=== PATIENT | male | born 1970 | race Caucasian/White ===

== ENCOUNTER 2019-02-19 07:44 | Observation (INO) ==
[2019-02-19 08:05] LABS: Basophils # 0.1 K/mcL (0.0-0.2); Basophils % 1.1 %; Eosinophils # 0.2 K/mcL (0.0-0.6); Eosinophils % 2.6 %; Hematocrit 41.6 % (37.5-50.1); Hemoglobin 14.5 g/dL (12.9-16.9); Immature Granulocytes % 0.2 % (0-4); Lymphocytes # 1.7 K/mcL (0.6-4.6); Lymphocytes % 19.8 %; Mean Corpuscular HGB Conc 34.9 g/dL (31.6-35.5); Mean Corpuscular Hemoglobin 31.5 pg (28.0-33.3); Mean Corpuscular Volume 90.4 fL (83.0-100.0); Mean Platelet Volume 10.2 fL (9.4-12.4); Monocytes # 0.6 K/mcL (0.0-1.3); Monocytes % 6.8 %; Neutrophils # 5.8 K/mcL (1.6-8.9); Platelet Count 261 K/mcL (140-400); Red Cell Distribution Width 12.8 % (11.5-14.5); Segmented Neutrophils % 69.5 %; White Blood Count 8.4 K/mcL (4.3-11.1)
[2019-02-19] MEDS ORDERED: *HR* Labetalol 20 MG/4 ML SYRINGE IVP ONE ×2 (08:09→09:23)
[2019-02-19] MEDS ORDERED: Lisinopril 20 MG TABLET PO ONE (08:10)
[2019-02-19] MEDS ORDERED: hydroCHLOROthiazide 25 MG TABLET PO ONE (08:10)
[2019-02-19 08:12] LABS: INR 0.9; Prothrombin Time 10.3 Seconds (9.4-12.1)
[2019-02-19 08:15] LABS: Activated Partial Thrombo Time 30.3 Seconds (26.0-36.0)
[2019-02-19 08:20] LABS: Alanine Aminotransferase 35 Units/L (7-52); Albumin 4.2 g/dL (3.5-5.7); Albumin/Globulin Ratio 1.6 (1.1-2.2); Alkaline Phosphatase 58 Units/L (34-104); Aspartate Amino Transferase 39 Units/L (13-39); BUN/Creatinine Ratio 18 (6-26); Bilirubin,Total 0.3 mg/dL (0.3-1.0); Blood Urea Nitrogen 27 mg/dL (6-20); Calcium 9.5 mg/dL (8.6-10.3); Carbon Dioxide 30 mEq/L (23-29); Chloride 103 mEq/L (98-107); Globulin 2.7 g/dL (2.4-3.5); Glucose 95 mg/dL (70-105); Osmolality,Calculated 295 (280-300); Potassium 3.7 mEq/L (3.5-5.1); Sodium 140 mEq/L (136-145); Total Protein 6.9 g/dL (6.4-8.9); eGFR For African Americans > 60 (> 60); eGFR For Non-African Americans 51 (> 60)
[2019-02-19 08:24] LABS: Troponin I < 0.03 ng/mL (< 0.04)
[2019-02-19] MEDS ORDERED: Ibuprofen 600 MG TABLET PO ONE (09:21)
[2019-02-19] MEDS ORDERED: MOM Conc 10 ML UD.LIQ PO PRN (10:05)
[2019-02-19] MEDS ORDERED: Mag Hydrox/Al Hydrox/Simeth 30 ML UDC PO PRN (10:05)
[2019-02-19] MEDS ORDERED: Naloxone 0.4 MG/ML INJ IVP PRN (10:05)
[2019-02-19] MEDS ORDERED: Ondansetron ODT 4 MG TAB.RAPDIS SL PRN (10:05)
[2019-02-19] MEDS ORDERED: *HR* HYDROcodone/Acet 5/325 mg TABLET PO PRN (10:07)
[2019-02-19] MEDS ORDERED: Nitroglycerin 0.4 MG TAB.SUBL SL PRN (10:07)
[2019-02-19] MEDS ORDERED: *HR* Labetalol 100 MG/20 ML MDV IVP PRN (10:08)
[2019-02-19] MEDS ORDERED: Nicotine 21 MG PATCH.TD24 TD SCH (10:15)
[2019-02-19] MEDS ORDERED: *HR* Labetalol 100 MG/20 ML MDV IVP ONE (12:35)
[2019-02-19] MEDS ORDERED: *HR* HYDROcodone/Acet 5/325 mg TABLET PO ONE (12:49)
[2019-02-19] MEDS ORDERED: Nicotine 2 MG GUM BC PRN (13:27)
[2019-02-19] MEDS: *HR* HYDROcodone/Acet 5/325 mg TABLET PO PRN ×2 (17:31→21:27)
[2019-02-19] MEDS: carvediloL 25 MG TABLET PO SCH (17:32)
[2019-02-19] MEDS ORDERED: 0.45 % Sodium Chloride w/KCl 20 MEQ/1,000 ML MLS IVC SCH (17:45)
[2019-02-19] MEDS: amLODIPine 5 MG TABLET PO SCH (18:39)
[2019-02-20] MEDS: *HR* HYDROcodone/Acet 5/325 mg TABLET PO PRN ×3 (01:49→10:23)
[2019-02-20 05:23] LABS: Amphetamine Screen,Urine Negative ng/mL (Cutoff=1000); Barbiturate Screen,Urine Negative ng/mL (Cutoff=200); Benzodiazepines Screen,Urine Negative ng/mL (Cutoff=200); Cannabinoid Screen,Urine Positive ng/mL (Cutoff = 50); Cocaine Screen,Urine Negative ng/mL (Cutoff= 300); Opiate Screen,Urine Positive ng/mL (Cutoff=300); Phencyclidine Screen,Urine Negative ng/mL (Cutoff=25)
[2019-02-20] MEDS: amLODIPine 5 MG TABLET PO SCH (08:22)
[2019-02-20] MEDS: carvediloL 25 MG TABLET PO SCH (08:22)
[2019-02-20] MEDS ORDERED: Lisinopril 20 MG TABLET PO SCH (09:00)
[2019-02-20] MEDS ORDERED: Aspirin 81 MG TAB.CHEW PO SCH (09:00)
[2019-02-20] MEDS ORDERED: hydroCHLOROthiazide 25 MG TABLET PO SCH (09:00)
[2019-02-20 09:25] LABS: Calcium 8.4 mg/dL (8.6-10.3); Magnesium 1.7 mg/dL (1.6-2.6); Potassium 3.4 mEq/L (3.5-5.1); Uric Acid 7.2 mg/dL (2.3-7.6)
[2019-02-20 11:14] VITALS: BP 130/89
== END 2019-02-20 12:38 | disposition home or self-care (01) ==
LOC: EMEROOPIK 07:44 → INPPIK 07:44
PROVIDERS: ADMIT Internal Medicine; ATTEND Internal Medicine

== ENCOUNTER 2020-08-17 12:18 | Observation (INO) ==
[2020-08-17] MEDS ORDERED: 0.9 % Sodium Chloride 1,000 ML IVC ONE (12:36)
[2020-08-17] MEDS ORDERED: carvediloL 25 MG TABLET PO ONE (12:42)
[2020-08-17] MEDS ORDERED: amLODIPine 5 MG TABLET PO ONE (12:42)
[2020-08-17 12:48] LABS: Basophils # 0.1 K/mcL (0.0-0.2); Basophils % 0.7 %; Eosinophils # 0.2 K/mcL (0.0-0.6); Eosinophils % 2.7 %; Hematocrit 36.3 % (37.5-50.1); Hemoglobin 12.6 g/dL (12.9-16.9); Lymphocytes # 2.6 K/mcL (0.6-4.6); Mean Corpuscular HGB Conc 34.7 g/dL (31.6-35.5); Mean Corpuscular Hemoglobin 29.8 pg (28.0-33.3); Mean Corpuscular Volume 85.8 fL (83.0-100.0); Mean Platelet Volume 10.5 fL (9.4-12.4); Monocytes # 0.5 K/mcL (0.0-1.3); Monocytes % 6.3 %; Neutrophils # 3.9 K/mcL (1.6-8.9); Platelet Count 275 K/mcL (140-400); Red Blood Count 4.23 M/mcL (4.19-5.50); Red Cell Distribution Width 12.6 % (11.5-14.5); Segmented Neutrophils % 54.3 %; White Blood Count 7.1 K/mcL (4.3-11.1)
[2020-08-17 13:03] LABS: Alanine Aminotransferase 9 Units/L (7-52); Albumin/Globulin Ratio 1.5 (1.1-2.2); Alkaline Phosphatase 57 Units/L (34-104); Aspartate Amino Transferase 11 Units/L (13-39); BUN/Creatinine Ratio 15 (6-26); Bilirubin,Direct 0.1 mg/dL (0.0-0.2); Bilirubin,Indirect 0.4 mg/dL (0.0-1.0); Bilirubin,Total 0.5 mg/dL (0.3-1.0); Blood Urea Nitrogen 19 mg/dL (6-20); Calcium 9.1 mg/dL (8.6-10.3); Carbon Dioxide 25 mEq/L (23-29); Chloride 107 mEq/L (98-107); Globulin 2.7 g/dL (2.4-3.5); Glucose 89 mg/dL (70-105); Osmolality,Calculated 294 (280-300); Potassium 3.3 mEq/L (3.5-5.1); Sodium 141 mEq/L (136-145); Total Protein 6.7 g/dL (6.4-8.9); eGFR For African Americans > 60 (> 60); eGFR For Non-African Americans > 60 (> 60)
[2020-08-17 14:23] LABS: Bilirubin,Urine Negative (Negative); Blood,Urine Negative (Negative); Clarity,Urine Clear (Clear); Color,Urine Yellow (Yellow); Glucose,Urine (UA) Normal (Normal); Ketones,Urine Negative (Negative); Leukocyte Esterase,Urine Negative (Negative); Nitrite,Urine Negative (Negative); Protein,Urine Trace mg/dL (Neg-Trace); Urobilinogen,Urine Normal (Normal)
[2020-08-17] MEDS: 0.9 % Sodium Chloride 1,000 ML IVC SCH ×2 (14:38→18:49)
[2020-08-17] MEDS ORDERED: Mag Hydrox/Al Hydrox/Simeth 30 ML UDC PO PRN (17:32)
[2020-08-17] MEDS ORDERED: Acetaminophen 325 MG TABLET PO PRN (17:32)
[2020-08-17] MEDS ORDERED: Naloxone 0.4 MG/ML INJ IVP PRN (17:32)
[2020-08-17] MEDS ORDERED: MOM Conc 10 ML UD.LIQ PO PRN (17:32)
[2020-08-17] MEDS ORDERED: Ondansetron 4 MG/2 ML VIAL IVP PRN (17:32)
[2020-08-17] MEDS ORDERED: Melatonin 3 MG TABLET PO PRN (17:32)
[2020-08-17] MEDS: *HR* OxyCODONE/APAP 5/325 TABLET PO SCH (19:49)
[2020-08-17] MEDS: *HR* Ticagrelor 90 MG TABLET PO SCH (19:49)
[2020-08-17] MEDS: lamoTRIgine 25 MG TABLET PO SCH (19:50)
[2020-08-17] MEDS: Melatonin 3 MG TABLET PO SCH (19:50)
[2020-08-18] MEDS: *HR* OxyCODONE/APAP 5/325 TABLET PO SCH ×3 (00:37→15:20)
[2020-08-18] MEDS: 0.9 % Sodium Chloride 1,000 ML IVC SCH ×3 (03:08→18:54)
[2020-08-18] MEDS: Aspirin Enteric Coated 81 MG Tablet PO SCH (08:04)
[2020-08-18] MEDS: lisinopriL 10 MG TABLET PO SCH (08:04)
[2020-08-18] MEDS: *HR* Ticagrelor 90 MG TABLET PO SCH ×2 (08:04→20:53)
[2020-08-18 09:17] LABS: Basophils # 0.1 K/mcL (0.0-0.2); Basophils % 0.8 %; Eosinophils # 0.3 K/mcL (0.0-0.6); Eosinophils % 4.3 %; Hematocrit 33.4 % (37.5-50.1); Hemoglobin 11.1 g/dL (12.9-16.9); Immature Granulocytes % 0.2 % (0-4); Lymphocytes # 2.2 K/mcL (0.6-4.6); Lymphocytes % 35.4 %; Mean Corpuscular HGB Conc 33.2 g/dL (31.6-35.5); Mean Corpuscular Hemoglobin 29.5 pg (28.0-33.3); Mean Corpuscular Volume 88.8 fL (83.0-100.0); Mean Platelet Volume 10.6 fL (9.4-12.4); Monocytes # 0.4 K/mcL (0.0-1.3); Monocytes % 6.1 %; Neutrophils # 3.3 K/mcL (1.6-8.9); Platelet Count 214 K/mcL (140-400); Red Blood Count 3.76 M/mcL (4.19-5.50); Red Cell Distribution Width 12.7 % (11.5-14.5); Segmented Neutrophils % 53.2 %; White Blood Count 6.1 K/mcL (4.3-11.1)
[2020-08-18 09:50] LABS: BUN/Creatinine Ratio 15 (6-26); Blood Urea Nitrogen 20 mg/dL (6-20); Calcium 8.4 mg/dL (8.6-10.3); Carbon Dioxide 24 mEq/L (23-29); Chloride 113 mEq/L (98-107); Glucose 104 mg/dL (70-105); Osmolality,Calculated 303 (280-300); Potassium 3.7 mEq/L (3.5-5.1); Sodium 145 mEq/L (136-145); eGFR For African Americans > 60 (> 60); eGFR For Non-African Americans 56 (> 60)
[2020-08-18] MEDS: *HR* OxyCODONE/APAP 5/325 TABLET PO PRN (20:52)
[2020-08-18] MEDS: Melatonin 3 MG TABLET PO SCH (20:53)
[2020-08-19] MEDS: *HR* OxyCODONE/APAP 5/325 TABLET PO PRN ×3 (02:24→15:53)
[2020-08-19] MEDS: *HR* Ticagrelor 90 MG TABLET PO SCH ×2 (08:00→20:11)
[2020-08-19] MEDS: Aspirin Enteric Coated 81 MG Tablet PO SCH (08:00)
[2020-08-19] MEDS: lisinopriL 10 MG TABLET PO SCH (08:00)
[2020-08-19] MEDS: cloNIDine HCL 0.1 MG TABLET PO PRN (15:54)
[2020-08-19] MEDS: 0.9 % Sodium Chloride 1,000 ML IVC SCH (19:45)
[2020-08-19] MEDS: lamoTRIgine 25 MG TABLET PO SCH (20:11)
[2020-08-19] MEDS: Melatonin 3 MG TABLET PO SCH (20:11)
[2020-08-20] MEDS: *HR* OxyCODONE/APAP 5/325 TABLET PO PRN ×2 (02:25→08:20)
[2020-08-20] MEDS: cloNIDine HCL 0.1 MG TABLET PO PRN (06:36)
[2020-08-20] MEDS: Aspirin Enteric Coated 81 MG Tablet PO SCH (08:14)
[2020-08-20] MEDS: lisinopriL 10 MG TABLET PO SCH (08:14)
[2020-08-20] MEDS: *HR* Ticagrelor 90 MG TABLET PO SCH (08:15)
[2020-08-20] MEDS ORDERED: amLODIPine 5 MG TABLET PO SCH (09:00)
[2020-08-20 10:49] VITALS: BP 126/79
== END 2020-08-20 16:32 ==
LOC: INPPIK 12:18 → EMEROOPIK 12:18 → INPPIK 17:48
PROVIDERS: ADMIT Family Medicine; ATTEND Family Medicine

== ENCOUNTER 2020-11-18 17:00 | Observation (INO) ==
[2020-11-18] MEDS ORDERED: *HR* Labetalol 20 MG/4 ML SYRINGE IVP ONE (17:45)
[2020-11-18] MEDS ORDERED: lisinopriL 10 MG TABLET PO STA (17:48)
[2020-11-18] MEDS: niCARdipine 20 MG/200 ML MLS IVC SCH (20:48)
[2020-11-18] MEDS ORDERED: Naloxone 0.4 MG/ML INJ IVP PRN (21:38)
[2020-11-19] MEDS ORDERED: niCARdipine 20 MG/200 ML MLS IVC SCH (02:23)
[2020-11-19] MEDS ORDERED: Naloxone 0.4 MG/ML INJ IVP PRN (02:23)
[2020-11-19] MEDS ORDERED: carvediloL 6.25 MG TABLET PO ONE ×2 (02:58→11:55)
[2020-11-19 07:45] LABS: Basophils # 0.1 K/mcL (0.0-0.2); Basophils % 0.7 %; Eosinophils # 0.3 K/mcL (0.0-0.6); Eosinophils % 3.1 %; Hematocrit 34.7 % (37.5-50.1); Hemoglobin 11.4 g/dL (12.9-16.9); Immature Granulocytes % 0.2 % (0-4); Lymphocytes # 2.2 K/mcL (0.6-4.6); Lymphocytes % 27.2 %; Mean Corpuscular HGB Conc 32.9 g/dL (31.6-35.5); Mean Corpuscular Volume 91.3 fL (83.0-100.0); Mean Platelet Volume 10.6 fL (9.4-12.4); Monocytes # 0.6 K/mcL (0.0-1.3); Monocytes % 7.5 %; Neutrophils # 4.9 K/mcL (1.6-8.9); Platelet Count 240 K/mcL (140-400); Segmented Neutrophils % 61.3 %; White Blood Count 8.1 K/mcL (4.3-11.1)
[2020-11-19] MEDS ORDERED: carvediloL 6.25 MG TABLET PO SCH (08:00)
[2020-11-19] MEDS ORDERED: lisinopriL 10 MG TABLET PO SCH (09:00)
[2020-11-19] MEDS: Aspirin Enteric Coated 81 MG Tablet PO SCH (09:26)
[2020-11-19] MEDS: niCARdipine 20 MG/200 ML MLS IVC SCH (11:54)
[2020-11-19] MEDS: lisinopriL 10 MG TABLET PO SCH (12:05)
[2020-11-19] MEDS: carvediloL 6.25 MG TABLET PO SCH (17:20)
[2020-11-20] MEDS ORDERED: *HR* Labetalol 20 MG/4 ML SYRINGE IVP ONE (02:20)
[2020-11-20] MEDS: Acetaminophen 325 MG TABLET PO PRN (02:54)
[2020-11-20 08:14] LABS: Calcium 9.1 mg/dL (8.6-10.3); Potassium 3.5 mEq/L (3.5-5.1)
[2020-11-20] MEDS: Aspirin Enteric Coated 81 MG Tablet PO SCH (08:27)
[2020-11-20] MEDS: carvediloL 6.25 MG TABLET PO SCH ×2 (08:27→15:52)
[2020-11-20] MEDS: lisinopriL 10 MG TABLET PO SCH (08:28)
[2020-11-20] MEDS ORDERED: amLODIPine 5 MG TABLET PO STA (20:54)
[2020-11-20] MEDS ORDERED: Melatonin 3 MG TABLET PO ONE (23:37)
[2020-11-20] MEDS ORDERED: ALPRAZolam 0.5 MG TABLET PO ONE (23:37)
[2020-11-21 07:30] VITALS: BP 125/89; PULSE 76; RESP 22; TEMP 98.3; O2SAT 91
[2020-11-21] MEDS: Acetaminophen 325 MG TABLET PO PRN (08:19)
[2020-11-21] MEDS: lisinopriL 10 MG TABLET PO SCH (08:20)
[2020-11-21] MEDS: carvediloL 6.25 MG TABLET PO SCH (08:20)
[2020-11-21] MEDS: Aspirin Enteric Coated 81 MG Tablet PO SCH (08:20)
== END 2020-11-21 12:20 | disposition home or self-care (01) ==
LOC: EMEROOPIK 17:00 → INPPIK 17:00
PROVIDERS: ADMIT Family Medicine; ATTEND Family Medicine